=== PATIENT | female | born 1970 | race Caucasian/White ===

== ENCOUNTER 2016-07-09 09:35 | Emergency (ER) ==
[2016-07-09 09:45] VITALS: BP 148/93
--- NOTE | 2016-07-09 10:07 | PROVIDER DOCUMENTATION ---
HPI-EENT General - General Chief Complaint: Earache Stated Complaint: LEFT FACIAL PAIN Time Seen by Provider: 07/09/16 09:52 Source: patient Allergies/Adverse Reactions: Patient Allergies Allergy/AdvReac Type Severity Reaction Status Date / Time No Known Allergies Allergy Unverified 07/09/16 10:01 - History of Present Illness-EENT General Nature of Presenting Problem: 45 y/o WF c/o L sided facial pain, sinus congestion, L ear pain x 1 week. Pt states that the sinus congestion has gotten better, but states still has pain in L ear. Reports not relieved with tylenol and motrin yesterday. Denies any fever/chills, cough, sick contacts. Review of Systems - Adult - REVIEW OF SYSTEMS - ADULT Constitutional: reports: no symptoms reported. denies: chills, fever Eyes: reports: no symptoms reported. denies: blurred vision, double vision Ears, Nose, Mouth & Throat: reports: see HPI, ear pain, sinus problem. denies: nose pain, throat pain Cardiovascular: reports: no symptoms reported. denies: chest pain, palpitations Respiratory: reports: no symptoms reported. denies: dyspnea on exertion, shortness of breath Gastrointestinal: reports: no symptoms reported. denies: abdominal pain, nausea , vomiting Genitourinary: reports: no symptoms reported. denies: dysuria, frequency Musculoskeletal: reports: no symptoms reported. denies: joint pain, joint swelling Integumentary: reports: no symptoms reported. denies: nail changes, rash Neurological: reports: no symptoms reported. denies: numbness, paresthesia Psychiatric: reports: no symptoms reported Endocrine: reports: no symptoms reported. denies: cold intolerance, heat intolerance Hematologic/Lymphatic: reports: no symptoms reported. denies: easy bruising, prolonged bleeding Allergic/Immunologic: reports: no symptoms reported All Other Systems: Reviewed and Negative Past History - Adult - PAST MEDICAL HISTORY-ADULT Review of Records: reports: Nursing Assessment Review, Medications Reviewed Major Childhood Illnesses: reports: denies history Cardiovascular: reports: denies history Respiratory: reports: denies history Gastrointestinal: reports: denies history Obstetrical/Gynecological: reports: denies history Genitourinary: reports: denies history Musculoskeletal: reports: denies history Neurological: reports: denies history Endocrine/Immune: reports: denies history Other Conditions: reports: denies history - PRIOR SURGERIES/PROCEDURES Surgical/Procedure History: reports: cholecystectomy, - PRIOR HOSPITALIZATIONS Prior Hospitalizations: reports: none - IMMUNIZATION STATUS Childhood Immunizations: UTD Flu Vaccine: See Nurse Assessment - FAMILY HISTORY Family History: reviewed, not pertinent - SOCIAL HISTORY Smoking: denies Physical Exam- EENT - Physical Exam EENT Initial Vital Signs Reviewed: Yes General Appearance: alert, mild distress Eye Exam: bilateral eye: normal inspection Ear Exam: right ear: canal normal, left ear: erythema, bilateral ear: auricle normal, TM normal (fluid noted behind L TM) Nasal Exam: normal inspection, sinus tenderness (L maxillary sinus) Throat Exam: normal mouth inspection, pharynx normal. negative: tonsillar exudate, tonsillar swelling Neck: supple, normal inspection, lymphadenopathy (mild cervical) Respiratory: lungs clear, normal breath sounds. negative: crackles, rales, rhonchi, stridor, wheezing Cardiovascular: regular rate, rhythm. negative: bradycardia, tachycardia Lymphatic: no adenopathy Extremity: normal gait Integumentary: normal color, normal turgor, warm/dry Neurologic: negative: aphasia Psych/Mental Status: AL, normal mood/affect, normal thought content, normal thought process, oriented x 3 Progress - PLAN OF CARE/RESULTS Progress/Plan/Lab Results: Vital Signs Temp Pulse Resp BP Pulse Ox 07/09/16 09:43 97.6 F 59 L 20 148/93 100 No Known Allergies Allergy (Unverified 07/09/16 10:01) Amoxicillin/Pot Clavulanate [Augmentin] 875 mg PO Q12HR #14 tablet 07/09/16 Prednisone 20 mg PO DAILY #12 tablet 07/09/16 Discussed medication use and f/u with pt. Departure - Departure Time of Disposition Order: 10:04 DIAGNOSIS: Otitis Qualifiers: Laterality: left Qualified Code(s): H66.92 - Otitis media, unspecified, left ear Sinusitis Qualifiers: Sinusitis location: maxillary Chronicity: acute Recurrence: not specified as recurrent Qualified Code(s): J01.00 - Acute maxillary sinusitis, unspecified Disposition: HOME 01 Certified Medical Emergency: Emergent Condition: Stable Additional Instructions: Take medications as directed. Add in a decongestant, like mucinex, for further relief. Follow up with specialist if symptoms persist. ED Follow Up Instructions: You have been treated by a care provider in the Emergency Department. These instructions are being provided to you so you can have an understanding of how to care for yourself upon discharge. Upon discharge from the Emergency Department, you are responsible for making arrangements for follow-up care by a physician of your choice. Take all prescribed medications as directed. Return to the Emergency Department immediately for any new or worsening symptoms. You may call the Physician Referral phone number at [phone] to obtain a list of Physicians who are taking new patients. Prescriptions: Amoxicillin/Pot Clavulanate [Augmentin] 875 mg PO Q12HR #14 tablet Prednisone 20 mg PO DAILY #12 tablet Referrals: None,PCP [Primary Care Provider] - Acosta Gordon MD [STAFF PHYSICIAN] - Forms: Return to School/Parent Work Instructions: Otitis Media, Adult, [id number], Sinusitis, [id number] Attestation - Physician/ Mid-level Attestation Patient care was provided by Mid-level provider (INSURANCE LOSS ASSESSOR/PA):: Yes Mid-level provider:: Aggie Paris Mid-level documentation review:: The Mid-level provider documentation, treatment plan and medical decision making was reviewed by the physician who agrees with all treatment and medical decision making by the P.
== END 2016-07-09 10:23 | disposition home or self-care (01) ==
LOC: ED 09:35
DX: H66.92 Otitis media, unspecified, left ear (principal); J01.00 Acute maxillary sinusitis, unspecified; R51 Headache; H92.02 Otalgia, left ear; R09.81 Nasal congestion; J34.89 Other specified disorders of nose and nasal sinuses; R59.0 Localized enlarged lymph nodes
CPT/HCPCS: 99281